=== PATIENT | male | born 1990 | race Caucasian/White ===

== ENCOUNTER 2024-08-07 15:14 | Emergency (ER) | payer OTHER ==
[2024-08-07 15:51] VITALS: BP 117/57; PULSE 79; RESP 18; TEMP 97.8; BMI 25.4
[2024-08-07] MEDS ORDERED: LIDOCAINE 5% TOPICAL PATCH ONE (16:10)
[2024-08-07] MEDS ORDERED: ACETAMINOPHEN 500 MG TABLET (FP) ONE (16:10)
[2024-08-07] MEDS ORDERED: KETOROLAC TROMETHAMINE 30 MG/1 ML VIAL ONE (16:10)
[2024-08-07] MEDS: ACETAMINOPHEN 500 MG TABLET (FP) PO ONE (16:25)
[2024-08-07] MEDS: KETOROLAC TROMETHAMINE 30 MG/1 ML VIAL IM ONE (16:25)
[2024-08-07] MEDS: LIDOCAINE 5% TOPICAL PATCH TP ONE (16:51)
[2024-08-07] MEDS ORDERED: predniSONE 20 MG TABLET (UD) ONE (17:35)
[2024-08-07] MEDS: predniSONE 20 MG TABLET (UD) PO ONE (17:40)
[2024-08-07] MEDS ORDERED: LIDOCAINE PATCH REMOVAL MC ONE (22:00)
== END 2024-08-07 18:00 | disposition home or self-care (01) ==
LOC: FER 15:14
PROC: 3E0133Z Introduction of Anti-inflammatory into Subcutaneous Tissue, Percutaneous Approach (ICD-10-PCS; principal; 2024-08-07)
DX: S39.012A Strain of muscle, fascia and tendon of lower back, initial encounter (principal); X58.XXXA Exposure to other specified factors, initial encounter
CPT/HCPCS: 72100-TC-FY; 72131-TC; 99284-25